=== PATIENT | female | born 1965 | race African-American/Black ===

== ENCOUNTER 2018-09-02 12:48 | Emergency (ER) | payer BC, MEDICAID ==
[~2018-09-02] VITALS: Ht 170.2 cm; Wt 110.0 kg
[2018-09-02] MEDS ORDERED: HYDROCODONE/ACETAMINOPHEN 5/325MG TABLET PO ONE ×2 (13:15→15:00)
[2018-09-02] MEDS ORDERED: IBUPROFEN 800MG TABLET PO ONE (15:00)
[2018-09-02 15:50] VITALS: BP 143/89
== END 2018-09-02 15:53 | disposition home or self-care (01) ==
LOC: ER 13:07
DX: S22.32XA Fracture of one rib, left side, initial encounter for closed fracture (principal); S09.8XXA Other specified injuries of head, initial encounter; M25.512 Pain in left shoulder; M54.89 Other dorsalgia; W10.9XXA Fall (on) (from) unspecified stairs and steps, initial encounter; Y93.89 Activity, other specified; Y92.89 Other specified places as the place of occurrence of the external cause
CPT/HCPCS: 71045; 71100; 73030; 99284

== ENCOUNTER 2025-01-28 03:02 | Emergency (ER) | payer MEDICAID ==
[~2025-01-28] VITALS: Ht 177.8 cm; Wt 106.0 kg
[2025-01-28 03:03] VITALS: BP 160/70; PULSE 70; RESP 22; TEMP 36.6; O2SAT 99
[2025-01-28] MEDS: LIDOCAINE 5% PATCH TOP SCH (04:15)
[2025-01-28] MEDS: KETOROLAC 15MG/ML VIAL IM ONE (04:15)
[2025-01-28] MEDS ORDERED: NAPR-1176 MT (05:41)
[2025-01-28] MEDS ORDERED: LIDO-53 TP (05:41)
[2025-01-28] MEDS ORDERED: HYDR-4001 MT (06:18)
== END 2025-01-28 06:44 | disposition home or self-care (01) ==
LOC: ER 03:02
DX: S89.91XA Unspecified injury of right lower leg, initial encounter (principal); I10 Essential (primary) hypertension; X50.9XXA Other and unspecified overexertion or strenuous movements or postures, initial encounter; Y93.89 Activity, other specified; Y92.89 Other specified places as the place of occurrence of the external cause; Y99.8 Other external cause status
CPT/HCPCS: 73562; 96372; 99283; J1885; Z7610; L1830